=== PATIENT | male | born 1990 | race Caucasian/White ===

== ENCOUNTER 2017-02-06 18:57 | Emergency (ER) | payer OTHER ==
--- NOTE | 2017-02-06 19:16 | ER Document Report ---
ED Medical Screen (RME) - General Chief Complaint: Abdominal Pain Stated Complaint: ABDOMINAL PAIN Time Seen by Provider: 02/06/17 19:09 Notes: Patient stated he started with abd cramps and diarrhea that has been treated with Bentyl and Zofran but the symptoms have not improved. He saw his primary physician again today and his primary physician referred him to the emergency department. He also complains of decreased appetite and nausea. No urinary symptoms. TRAVEL OUTSIDE OF THE [place] IN LAST 30 DAYS: No - Related Data Allergies/Adverse Reactions: No Known Allergies Allergy (Verified 02/06/17 18:57) Home Medications: Current Home Medications Dicyclomine HCl 20 mg PO QID 02/06/17 [History] Ondansetron HCl [Zofran 8 mg Tablet] 1 tab PO Q8 PRN 02/06/17 [History] Past Medical History - Social History Chew tobacco use (# tins/day): No Frequency of alcohol use: Occasional Drug Abuse: None Renal/ Medical History: Denies: Hx Peritoneal Dialysis - Immunizations Hx Diphtheria, Pertussis, Tetanus Vaccination: - unk Physical Exam - Vital signs Vitals: Temp Pulse Resp BP Pulse Ox 98.7 F 76 16 125/76 100 02/06/17 19:02 02/06/17 19:02 02/06/17 19:02 02/06/17 19:02 02/06/17 19:02 Course - Vital Signs Vital signs: Temp Pulse Resp BP Pulse Ox 98.7 F 76 16 125/76 100 02/06/17 19:02 02/06/17 19:02 02/06/17 19:02 02/06/17 19:02 02/06/17 19:02
--- NOTE | 2017-02-06 20:00 | ER Document Report ---
ED GI/ - General Chief Complaint: Abdominal Pain Stated Complaint: ABDOMINAL PAIN Time Seen by Provider: 02/06/17 19:09 Notes: Patient is a 26-year-old male that comes emergency department for chief complaint of diarrhea and intermittent sharp abdominal cramps. He states symptoms started about a week ago. He was seen by primary care, placed on Bentyl and Zofran, he went to see them again today because he is still having diarrhea and cramps and they referred him to the emergency department. He denies fever, hematochezia, he did vomit once earlier today. He states he actually is not having as frequent diarrhea now and in general he feels better today than he did previously. He denies any recent antibiotics, travel, although he has been around someone with similar symptoms. Denies surgeries, daily medications, or made any medical problems. TRAVEL OUTSIDE OF THE [place] IN LAST 30 DAYS: No - Related Data Allergies/Adverse Reactions: No Known Allergies Allergy (Verified 02/06/17 18:57) Home Medications: Current Home Medications Dicyclomine HCl 20 mg PO QID 02/06/17 [History] Ondansetron HCl [Zofran 8 mg Tablet] 1 tab PO Q8 PRN 02/06/17 [History] Past Medical History - General Information source: Patient - Social History Smoking Status: Current Some Day Smoker Chew tobacco use (# tins/day): No Frequency of alcohol use: Occasional Drug Abuse: None Lives with: Family Family History: Reviewed & Not Pertinent Patient has suicidal ideation: No Patient has homicidal ideation: No - Medical History Medical History: Negative Renal/ Medical History: Denies: Hx Peritoneal Dialysis Surgical Hx: Negative - Immunizations Immunizations up to date: Yes Hx Diphtheria, Pertussis, Tetanus Vaccination: - unk Review of Systems - Review of Systems Constitutional: No symptoms reported EENT: No symptoms reported Cardiovascular: No symptoms reported Respiratory: No symptoms reported Gastrointestinal: See HPI Genitourinary: No symptoms reported Male Genitourinary: No symptoms reported Musculoskeletal: No symptoms reported Skin: No symptoms reported Hematologic/Lymphatic: No symptoms reported Neurological/Psychological: No symptoms reported Physical Exam - Vital signs Vitals: Temp Pulse Resp BP Pulse Ox 98.7 F 76 16 125/76 100 02/06/17 19:02 02/06/17 19:02 02/06/17 19:02 02/06/17 19:02 02/06/17 19:02 Interpretation: Normal - General General appearance: Appears well In distress: None - Patient alert, conversational, well-appearing - HEENT Head: Normocephalic, Atraumatic Eyes: Normal Pupils: PERRL - Respiratory Respiratory status: No respiratory distress Chest status: Nontender Breath sounds: Normal. No: Decreased air movement, Wheezing Chest palpation: Normal - Cardiovascular Rhythm: Regular. No: Tachycardia Heart sounds: Normal auscultation, S1 appreciated, S2 appreciated Murmur: No - Abdominal Inspection: Normal Distension: No distension. No: Distended - No abdominal distention Bowel sounds: Normal Tenderness: Tender - There is mild generalized tenderness in every abdominal quadrant, increased tenderness in the left lower quadrant although there is no guarding, rigidity, or rebound tenderness. Organomegaly: No organomegaly - Back Back: Normal, Nontender. No: Tender, CVA tenderness - Extremities General upper extremity: Normal inspection, Nontender, Normal color, Normal ROM , Normal temperature General lower extremity: Normal inspection, Nontender, Normal color, Normal ROM , Normal temperature, Normal weight bearing - Neurological Neuro grossly intact: Yes Cognition: Normal Orientation: AAOx4 Browns Coma Scale Eye Opening: Spontaneous Kaur Coma Scale Verbal: Oriented Kaur Coma Scale Motor: Obeys Commands Kaur Coma Scale Total: 15 Speech: Normal Motor strength normal: LUE, RUE, LLE, RLE Sensory: Normal - Psychological Associated symptoms: Normal affect, Normal mood - Skin Skin Temperature: Warm Skin Moisture: Dry Skin Color: Normal Course - Re-evaluation Re-evalutation: CBC, CMP, urinalysis unremarkable. Patient with some left lower quadrant tenderness on exam, very generalized mild tenderness otherwise. Patient is well -appearing, alert, vital signs are unremarkable. Patient able to provide a very small stool sample with limited testing, no white blood cells, able to get a stool culture and Gram stain which is pending. Patient requesting treatment because of ongoing diarrhea. Abdomen, presentation, workup did not suggest acute abdomen. Patient will be provided with Cipro. Discussed follow-up, return precautions. Patient states understanding and agreement. - Vital Signs Vital signs: Temp Pulse Resp BP Pulse Ox 98.7 F 65 17 128/79 H 100 02/06/17 19:02 02/06/17 22:55 02/06/17 22:55 02/06/17 22:55 02/06/17 22:55 - Laboratory Result Diagrams: 02/06/17 19:40 02/06/17 19:40 Laboratory results interpreted by me: 02/06/17 02/06/17 19:40 19:40 Carbon Dioxide 31 H Urine Ascorbic Acid 20 H Discharge - Discharge Clinical Impression: Diarrhea Qualifiers: Diarrhea type: unspecified type Qualified Code(s): R19.7 - Diarrhea, unspecified Condition: Stable Disposition: HOME, SELF-CARE Additional Instructions: Your workup does not show any abnormalities. Because of your ongoing diarrhea for a week we have chosen to run a stool culture and treat him with Cipro for the next several days. Take as prescribed, stay hydrated, continue current medications prescribed for pain/nausea. Follow-up with primary care. Return for any concerning symptoms including return or worsening vomiting, bloody bowel movements, fever, abdominal distention, severe abdominal pain, or any other concerning symptoms. Prescriptions: Ciprofloxacin HCl [Cipro 500 mg Tablet] 500 mg PO BID #10 tablet Forms: Return to Work Referrals: JESSI ESCALANTE MD [Primary Care Provider] - Follow up as needed
[2017-02-06 20:03] LABS: ABSOLUTE BASOPHILS # (AUTO) 0.1 10^3/uL (0.0-0.2); ABSOLUTE EOSINOPHILS # (AUTO) 0.1 10^3/uL (0.0-0.6); ABSOLUTE LYMPHOCYTES (AUTO) 2.2 10^3/uL (0.5-4.7); ABSOLUTE MONOCYTES (AUTO) 0.6 10^3/uL (0.1-1.4); ABSOLUTE NEUT (AUTO) 4.1 10^3/uL (1.7-8.2); BASOPHILS % (AUTO) 0.8 % (0-2); EOSINOPHILS % (AUTO) 1.9 % (0-6); HEMOGLOBIN 15.3 g/dL (13.5-17.0); HGB HCT DIFFERENCE 1.9; LYMPHOCYTES % (AUTO) 30.9 % (13-45); MEAN CORPUSCULAR HEMOGLOBIN 30.6 pg (27.0-33.4); MEAN CORPUSCULAR HGB CONC 34.7 g/dL (32.0-36.0); MEAN CORPUSCULAR VOLUME 88 fl (80-97); RED BLOOD COUNT 4.99 10^6/uL (4.35-5.55); SEGMENTED NEUTROPHILS % (AUTO) 57.4 % (42-78); WHITE BLOOD COUNT 7.1 10^3/uL (4.0-10.5)
[2017-02-06 20:05] LABS: APPEARANCE,URINE CLEAR; BILIRUBIN,URINE NEGATIVE (NEGATIVE); GLUCOSE, URINE NEGATIVE (NEGATIVE); KETONES,URINE NEGATIVE (NEGATIVE); LEUKOCYTE ESTERASE,URINE NEGATIVE (NEGATIVE); NITRITE,URINE NEGATIVE (NEGATIVE); PROTEIN,URINE NEGATIVE (NEGATIVE); URINE SPECIFIC GRAVITY 1.024; UROBILINOGEN,URINE NEGATIVE mg/dL (<2.0)
[2017-02-06 20:16] LABS: ALANINE AMINOTRANSFERASE 28 U/L (21-72); ALBUMIN 4.4 g/dL (3.5-5.0); ALKALINE PHOSPHATASE 81 U/L (38-126); ANION GAP 10 (5-19); ASPARTATE AMINO TRANSFERASE 30 U/L (17-59); BILIRUBIN,DIRECT 0.2 mg/dL (0.0-0.4); BLOOD UREA NITROGEN 15 mg/dL (7-20); CALCIUM 9.5 mg/dL (8.4-10.2); CARBON DIOXIDE 31 mmol/L (22-30); CHLORIDE 102 mmol/L (98-107); CREATININE RESULT 1.08 mg/dL (0.52-1.25); GLUCOSE 86 mg/dL (75-110); LIPASE 108.6 U/L (23-300); POTASSIUM 4.2 mmol/L (3.6-5.0); SODIUM 142.5 mmol/L (137-145); TOTAL PROTEIN 7.1 g/dL (6.3-8.2)
[2017-02-06] MEDS ORDERED: CIPROFLOXACIN HCL 500 MG TABLET PO ONE (22:41)
[2017-02-06 23:11] VITALS: BP 128/79
== END 2017-02-06 22:55 | disposition home or self-care (01) ==
LOC: ER 18:57
DX: R19.7 Diarrhea, unspecified (principal); R10.9 Unspecified abdominal pain; Z79.899 Other long term (current) drug therapy; F17.200 Nicotine dependence, unspecified, uncomplicated
CPT/HCPCS: 36415; 80053; 81001; 83690; 85025; 87045; 87205; 89055; 99284